=== PATIENT | male | born 1995 | race Two or more races ===

== ENCOUNTER 2020-09-18 04:11 | Emergency (ER) | payer SELFPAY ==
[~2020-09-18] VITALS: Ht 172.7 cm; Wt 85.0 kg
[2020-09-18] MEDS ORDERED: LORAZEPAM 1MG TABLET PO ONE (04:30)
[2020-09-18 04:46] LABS: BASOPHILS % 0.1 % (0.0-2.0); EOSINOPHILS % 1.8 % (0.0-5.0); HEMATOCRIT. 45.1 % (42.0-52.0); HEMOGLOBIN. 14.9 g/dL (14.0-18.0); LYMPHOCYTES % 13.9 % (20.0-50.0); MEAN CORPUSCULAR HEMOGLOBIN 30.7 pg (28.0-32.0); MEAN CORPUSCULAR VOLUME 92.7 fL (80.0-94.0); MEAN PLATELET VOLUME 8.4 fl (7.4-10.4); NEUTROPHILS % 82.2 % (40.0-76.0); PLATELET 265 x1000/uL (130-400); RED BLOOD CELL COUNT 4.86 mill/uL (4.7-6.1); RED CELL DISTRIBUTION WIDTH 14.3 % (11.6-14.6)
[2020-09-18 04:51] LABS: CHLORIDE 108 mEq/L (98-107)
[2020-09-18 04:55] LABS: ETHANOL BLOOD < 10 mg/dL
[2020-09-18] MEDS ORDERED: CHLORDIAZEPOXIDE 25MG CAPSULE PO ONE (06:15)
[2020-09-18 06:28] VITALS: BP 114/76
== END 2020-09-18 06:29 | disposition home or self-care (01) ==
LOC: ER 04:11
DX: R56.9 Unspecified convulsions (principal)
CPT/HCPCS: 36415; 80053; 80320; 85025; 93005; 99285; G0480